=== PATIENT | female | born 1965 | race Caucasian/White ===

== ENCOUNTER 2024-11-03 07:24 | Observation (INO) | payer OTHER ==
[2024-11-03 07:34] VITALS: RESP 18
[2024-11-03 08:48] LABS: ABSOLUTE IMMATURE GRANULOCYTES 0.02 x10^3/uL (0.0-0.031); BASOPHILS # 0.03 x10^3/uL (0.01-0.08); EOSINOPHIL % 2.2 % (0.7-5.8); EOSINOPHILS # 0.16 x10^3/uL (0.04-0.36); HEMATOCRIT 37.6 % (34.1-44.9); HEMOGLOBIN 12.5 g/dL (11.2-15.7); MCHC 33.2 g/dl (32.2-35.5); MEAN CELL VOLUME 92.2 fl (79.4-94.8); MEAN PLT VOLUME 9.8 fl (9.4-12.3); MONOCYTE # 0.48 x10^3/uL (0.24-0.86); MONOCYTE % 6.5 % (4.7-12.5); PLATELET COUNT 292 x10^3/uL (182-369); RDW 12.8 % (12.3-16.6)
[2024-11-03 08:56] LABS: INR 1.02 (0.83-1.09); PROTHROMBIN TIME (PATIENT) 11.1 SEC (9.7-13.0)
[2024-11-03 08:59] LABS: ACTIVATED PTT 31.9 SECONDS (25.2-36.5)
[2024-11-03 09:31] LABS: CHLORIDE 108 mmol/L (98-107); SODIUM 141 mmol/L (136-145)
[2024-11-03 09:33] LABS: ALBUMIN 3.9 g/dl (3.4-5.0); ANION GAP 8 mmol/L (4-13); BLOOD UREA NITROGEN 10.1 mg/dL (7-18); CALCIUM 9.4 mg/dL (8.5-10.1); CO2 25 mmol/L (21-32); GLUCOSE,RANDOM 113 mg/dL (74-106)
[2024-11-03 09:37] LABS: SGOT/AST 22 U/L (15-37); SGPT/ALT 32 U/L (13-61)
[2024-11-03 09:38] LABS: BILIRUBIN,TOTAL 1.1 mg/dL (0.2-1); TOT PROT 7.2 g/dl (6.4-8.2)
[2024-11-03 09:39] LABS: ALK PHOS 71 U/L (45-117)
[2024-11-03 11:11] LABS: ABSOLUTE IMMATURE GRANULOCYTES 0.02 x10^3/uL (0.0-0.031); BASOPHILS # 0.02 x10^3/uL (0.01-0.08); EOSINOPHIL % 1.7 % (0.7-5.8); EOSINOPHILS # 0.15 x10^3/uL (0.04-0.36); HEMATOCRIT 35.9 % (34.1-44.9); HEMOGLOBIN 11.6 g/dL (11.2-15.7); MCHC 32.3 g/dl (32.2-35.5); MEAN CELL VOLUME 92.8 fl (79.4-94.8); MEAN PLT VOLUME 9.7 fl (9.4-12.3); MONOCYTE # 0.53 x10^3/uL (0.24-0.86); PLATELET COUNT 257 x10^3/uL (182-369); RDW 12.9 % (12.3-16.6)
[2024-11-03] MEDS: SODIUM CHLORIDE 1,000 ML IV STA (11:22)
[2024-11-03 12:13] LABS: HCV DIAGNOSTIC IN-HOUSE W/RFLX NON-REACTIVE (NONREACTIVE)
[2024-11-03 12:16] LABS: HIV INTERPRETATION NEGATIVE (NEGATIVE)
[2024-11-03] MEDS ORDERED: ACETAMINOPHEN INJECTION 100 ML ONE (14:08)
[2024-11-03] MEDS: ACETAMINOPHEN 1000 MG/100 ML BAG IVPB ONE (14:14)
[2024-11-03 15:11] VITALS: TEMP 97.7
[2024-11-03 16:48] LABS: ABSOLUTE IMMATURE GRANULOCYTES 0.01 x10^3/uL (0.0-0.031); BASOPHILS # 0.03 x10^3/uL (0.01-0.08); EOSINOPHIL % 2.9 % (0.7-5.8); EOSINOPHILS # 0.19 x10^3/uL (0.04-0.36); HEMATOCRIT 31.8 % (34.1-44.9); HEMOGLOBIN 10.3 g/dL (11.2-15.7); MCHC 32.4 g/dl (32.2-35.5); MONOCYTE # 0.45 x10^3/uL (0.24-0.86); MONOCYTE % 6.9 % (4.7-12.5); PLATELET COUNT 240 x10^3/uL (182-369); RDW 12.9 % (12.3-16.6)
[2024-11-03 16:59] VITALS: BMI 30.7
[2024-11-03] MEDS: LACTATED RINGERS SOLUTION 1,000 ML/1,000 ML INFUS.BAG IV SCH (19:34)
[2024-11-03] MEDS: TRANEXAMIC ACID 1000 MG/10 ML VIAL IVPUSH ONE (19:34)
[2024-11-03 20:03] LABS: EPI CELLS 2 /uL (0-25.1); HCG,QUALITATIVE URINE Negative; HYALINE CASTS 0 /uL (0-3.1); URINE APPEARANCE CLOUDY; URINE BACTERIA >9,000 /uL (0-1359); URINE BILIRUBIN NEGATIVE (NEGATIVE); URINE COLOR YELLOW; URINE GLUCOSE (UA) NEGATIVE (NEGATIVE); URINE KETONE TRACE (NEGATIVE); URINE LEUK ESTERASE TRACE (NEGATIVE); URINE NITRITE POSITIVE (NEGATIVE); URINE PROTEIN TRACE (NEGATIVE); URINE RBC 1198 /uL (0-23.9); URINE WBC 246 /uL (0-25.8)
[2024-11-03] MEDS ORDERED: PATIENT'S OWN MEDICATION (NON-FORMULARY) (Meloxicam [Meloxicam] 15 MG Tablet) PO SCH (22:00)
[2024-11-03] MEDS: AMITRIPTYLINE HCL 10 MG TABLET PO SCH (23:03)
[2024-11-04 08:04] LABS: ABSOLUTE IMMATURE GRANULOCYTES 0.01 x10^3/uL (0.0-0.031); BASOPHILS # 0.02 x10^3/uL (0.01-0.08); EOSINOPHIL % 4.1 % (0.7-5.8); EOSINOPHILS # 0.18 x10^3/uL (0.04-0.36); HEMATOCRIT 33.1 % (34.1-44.9); HEMOGLOBIN 10.7 g/dL (11.2-15.7); MCHC 32.3 g/dl (32.2-35.5); MEAN PLT VOLUME 9.7 fl (9.4-12.3); MONOCYTE # 0.29 x10^3/uL (0.24-0.86); MONOCYTE % 6.6 % (4.7-12.5); PLATELET COUNT 237 x10^3/uL (182-369); RDW 12.9 % (12.3-16.6)
[2024-11-04 10:04] VITALS: BP 106/44; PULSE 77
== END 2024-11-04 11:24 | disposition home or self-care (01) ==
LOC: JER 07:24 → JERBED 11:33 → J5S 14:39
PROVIDERS: ADMIT Internal Medicine; ATTEND Internal Medicine
PROC: 3E033NZ Introduction of Analgesics, Hypnotics, Sedatives into Peripheral Vein, Percutaneous Approach (ICD-10-PCS; principal; 2024-11-03)
PROC: 3E0337Z Introduction of Electrolytic and Water Balance Substance into Peripheral Vein, Percutaneous Approach (ICD-10-PCS; 2024-11-03)
PROC: 3E033GC Introduction of Other Therapeutic Substance into Peripheral Vein, Percutaneous Approach (ICD-10-PCS; 2024-11-03)
DX: N93.9 Abnormal uterine and vaginal bleeding, unspecified (principal); Z85.89 Personal history of malignant neoplasm of other organs and systems; J45.909 Unspecified asthma, uncomplicated; R91.8 Other nonspecific abnormal finding of lung field; U09.9 Post COVID-19 condition, unspecified; G90.521 Complex regional pain syndrome I of right lower limb; Z88.8 Allergy status to other drugs, medicaments and biological substances
CPT/HCPCS: 36415; 76830-TC; 80053; 81003; 84702; 84703; 85025; 85610; 85730; 86803; 86850; 86900; 86901; 87086; 87389; 93005; 93010; 99285-25; G0378